=== PATIENT | female | born 1990 | race Caucasian/White ===

== ENCOUNTER 2017-02-06 16:52 | Emergency (ER) | payer OTHER ==
[~2017-02-06] VITALS: Ht 154.9 cm; Wt 85.4 kg
[2017-02-06 17:06] VITALS: BP 118/78
== END 2017-02-06 19:11 | disposition home or self-care (01) ==
LOC: ED 16:52
DX: J02.9 Acute pharyngitis, unspecified (principal); R53.81 Other malaise; M79.1 Myalgia

== ENCOUNTER 2017-12-16 19:33 | Emergency (ER) | payer OTHER ==
[~2017-12-16] VITALS: Ht 154.9 cm; Wt 91.7 kg
[2017-12-16 19:48] VITALS: Ht 154.9 cm; Wt 91.7 kg
[2017-12-16 20:27] LABS: UA SPECIFIC GRAVITY >=1.030 (1.005-1.035); microscopic required? YES; urine erythrocyte NEGATIVE (NEGATIVE)
[2017-12-16 20:41] LABS: BASOPHIL % 0.3 % (0-2); PLATELET COUNT 271 x10^3mcL (130-400); RED CELL DISTRIBUTION WIDTH 13.3 % (11.5-14.5)
[2017-12-16 20:45] LABS: CALCIUM 8.8 mg/dL (8.5-10.1); CARBON DIOXIDE 22.9 mmol/L (21-32); CHLORIDE SERUM 101 mmol/L (98-107); CREATININE SERUM 0.6 mg/dL (0.6-1.0); GFR1 > 60 mL/min; GLUCOSE SERUM 117 mg/dL (74-106); POTASSIUM SERUM 3.1 mmol/L (3.5-5.1); SODIUM SERUM 134 mmol/L (136-145)
[2017-12-16 22:53] VITALS: BP 108/64
== END 2017-12-16 22:53 | disposition home or self-care (01) ==
LOC: ED 19:33
PROVIDERS: Emergency Medicine
DX: O23.43 Unspecified infection of urinary tract in pregnancy, third trimester (principal); O99.513 Diseases of the respiratory system complicating pregnancy, third trimester; E87.6 Hypokalemia; H92.02 Otalgia, left ear; M54.5 Low back pain; Z3A.24 24 weeks gestation of pregnancy
CPT/HCPCS: 87804; J7030; Q0092